=== PATIENT | male | born 1955 | race Caucasian/White ===

== ENCOUNTER 2016-12-06 09:54 | Emergency (ER) | payer BC ==
--- NOTE | 2016-12-06 10:16 | ERNOTE ---
Head Injury HPI - Narrative Date of Service: 12/06/16 - General Injury to: head Source: patient - Immun/Allergies/Home Medications Immunization: IMMUNIZATION HX Immunizations Up to Date Yes History of Influenza Vaccine Yes Hx Pneumococcal Vaccination Yes Allergies/Adverse Reactions: Allergies Allergy/AdvReac Type Severity Reaction Status Date / Time No Known Allergies Allergy Unverified 11/16/14 01:08 Home Medications: HOME MEDICATIONS Allopurinol [Zyloprim (Allopurinol)] 100 mg PO DAILY 12/06/16 [Last Taken Unknown] Alprazolam [Alprazolam ER] 0.5 mg PO BID PRN 12/06/16 [Last Taken Unknown] Atenolol [Tenormin] 25 mg PO DAILY 12/06/16 [Last Taken Unknown] Esomeprazole Magnesium [Nexium] 40 mg PO DAILY 12/06/16 [Last Taken Unknown] Lisinopril/Hydrochlorothiazide [Lisinopril-Hctz 10-12.5 mg Tab] 1 each PO DAILY 12/06/16 [Last Taken Unknown] Lorazepam [Ativan] 2 mg PO HS 12/06/16 [Last Taken Unknown] Meloxicam [Mobic] 15 mg PO DAILY 12/06/16 [Last Taken Unknown] Montelukast Sodium [Singulair] 10 mg PO DAILY 12/06/16 [Last Taken Unknown] Tadalafil [Cialis] 20 mg PO PRN PRN 12/06/16 [Last Taken Unknown] metFORMIN HCL [Metformin HCl ER] 500 mg PO 12/06/16 [Last Taken Unknown] - History of Present Illness Narrative: patient states that he was getting his luggage out of the back of an [employer] car when the trunk lid of the car did not stay open and hit him in the head. he hs c /o of neck pain/ HOGAN and some dizzyness. Occurred: yesterday Location Occurred: street Severity: mild Head Injury Location: parietal Method of Injury: Reports: direct blow Loss of Consciousness: Reports: no loss of consciousness Associated Symptoms: Reports: neck pain. Denies: weakness, syncope, nausea, vomiting Review of Systems - Narrative Narrative: patient present for a HOGAN and neck pain r/t getting hit in the head with the trunk lid of a car yesterday. patient states that he was getting things outof the trunk of an [employer] when the lid came down ant struck himin the head. denies LOC. Patient states he think that he may be dizzy at times. denies any Nause or vomiting. - Review of Systems Constitutional: Present: no symptoms reported EYE: Present: no symptoms reported. Absent: blurred vision, double vision, vision changes ENT: Present: no symptoms reported Respiratory: Present: no symptoms reported Cardiology: Present: no symptoms reported Gastrointestinal/Abdominal: Present: no symptoms reported Genitourinary: Present: no symptoms reported Musculoskeletal: Present: See HPI, neck pain Neurological: Present: See HPI, headache, dizziness/light-headedness Endocrine: Present: no symptoms reported Hematologic/Lymphatic: Present: no symptoms reported Psych: Present: no symptoms reported All Other Systems: All systems neg except as marked - Patient's Past Medical History Patient History - Medical: No pertinent hx Patient History - Cardiac/Respiratory: Hypertension Patient History - Cancer: No Hx of Cancer Patient History - Surgical Procedures: Total Hip Replacement Patient History - Other: None - Social History Living Situations: home Psych History: No pertinent hx Smoking Status: Never smoker Alcohol Use: rarely Drug Use: none - Immunizations Immunizations Up to Date: Yes Hx Pneumococcal Vaccination: Yes History of Influenza Vaccine: Yes Physical Exam - Physical Exam Narrative: neuro check WNL, no neuro deficits observed suring exam. General Appearance: Present: wd/wn, alert, no apparent distress Eye Exam: Normal inspection: bilateral, PERRL: bilateral Ears, Nose, Throat: Present: normal ENT inspection Neck: Present: normal inspection, full range of motion, tender posterior midline. Absent: lymphadenopathy (R), lymphadenopathy (L) Respiratory: Present: no respiratory distress, normal breath sounds, no accessory muscle use, chest nontender, lungs clear Cardiovascular/Chest: Present: regular rate, rhythm, no murmur, normal peripheral pulses Peripheral Pulses: N=norm/S=strong/W=weak/B=bound/A=absent: Radial (R): Normal, Radial (L): Normal Gastrointestinal/Abdominal: Present: normal bowel sounds, nontender, soft Back Exam: Present: normal inspection, normal range of motion Extremity Exam: Present: normal inspection, non-tender, normal range of motion, no edema. Absent: decreased range of motion Neurological Exam: Present: alert, oriented, normal mood/affect, no motor/ sensory deficits, choir member II-XII nml as tested, normal cerebellar test. Absent: motor weakness Skin Exam: Present: normal color, warm/dry Lymphatic Exam: Present: no adenopathy ED Progress - Vital Signs Patient's Vital Signs:: I have reviewed the patient's vital signs. Vital Signs: Vital Signs 12/06/16 09:57 Temperature 37.1 C Pulse Rate 79 Respiratory 16 Rate Blood Pressure 147/86 O2 Sat by Pulse 96 Oximetry - CT/Ultrasound CT/Ultrasound Narrative: PATIENT RADIOLOGY STUDY REPORT Patient Patient Name:VADIM KUMAR Date: 1955 Sex: M Order Number: [id number] Unique Exam ID: [id number] Exam Requested: CERV W/O - CT Cervical W/O * Date Scheduled: 12-06-2016 10:17 AM Study Priority: Requesting Service: Requesting Physician: Naif Winn Reason for Exam: struck in the head by a trunk lid, c/o neck pain Radiological Report : [place] [address] NAME: VADIM KUMAR : 1955 MR #: [id number] CC: Naif BAXTERP LOC: ER ADM DATE: X-RAY REPORT CT/CT Cervical W/O * Exam Date: 12/06/2016 10:17 Ordering Physician: Naif Winn HISTORY: struck in the head by a trunk lid, c/o neck pain UNENHANCED CT SCAN OF THE CERVICAL SPINE COMPARISON: NONE Technique: Multiple thin axial images were obtained from the skull base down to the T5. The examination was performed without IV contrast. Sagittal and coronal reconstructions were obtained. Findings: A cervical spine collar is not identified. The cervical spine demonstrates normal alignment. There is mild narrowing of the C3/4 and mild to moderate narrowing of the C5/6 disc spaces. The vertebral bodies and the remaining disc spaces are maintained. The facet joints demonstrate normal alignment. The odontoid is normal in appearance. The articulation between C1 and C2 is normal. I do not see evidence for fracture or bony abnormality on this study. The prevertebral soft tissues are within normal limits. Visualized upper ribs appear intact. The lung apices are clear. IMPRESSION: 1. PREVERTEBRAL SOFT TISSUES WITHIN NORMAL LIMITS. 2. NO DEFINABLE ACUTE OSSEOUS ABNORMALITY. CLINICAL CORRELATION IS STILL REQUIRED. Electronically signed by Samuel Campos M.D.. - Progress/Reassessment Chief Complaint: Head Injury Progress:: Unchanged Plan - Plan Plan: Patient states he has a follow-up appointment on with his primary care provider and will discuss his recent emergency room visit and diagnosis. Departure Clinical Impression: Concussion Qualifiers: Encounter type: initial encounter Loss of consciousness presence/duration: without LOC Qualified Code(s): S06.0X0A - Concussion without loss of consciousness, initial encounter - Departure Disposition: Home Follow Up Needed Condition: Stable Instructions: Concussion, Adult, [id number], Post-Concussion Syndrome, Easy- to-Read Additional Instructions: Continue any previous home medications as directed. Follow up with your primary care provider in the next 2-3 days. Return to emergency room if he develops any nausea or vomiting increased dizziness or decreased level of consciousness. Return to emergency room if symptoms continue or become worse. He may take [id number] pain medications as needed. Referrals: Vadim Falcon MD [Primary Care Provider] -
[2016-12-06 11:15] VITALS: BP 131/70
== END 2016-12-06 11:18 | disposition home or self-care (01) ==
LOC: ER 09:54
DX: S06.0X0A Concussion without loss of consciousness, initial encounter (principal); W22.8XXA Striking against or struck by other objects, initial encounter; Y93.89 Activity, other specified; Y92.9 Unspecified place or not applicable; I10 Essential (primary) hypertension; M54.2 Cervicalgia; Z96.649 Presence of unspecified artificial hip joint